=== PATIENT | female | born 1955 | race Caucasian/White ===

== ENCOUNTER 2017-07-31 05:58 | Day surgery (SDC) | payer OTHER ==
[2017-07-29 12:37] VITALS: BMI 33.6
[2017-07-31] MEDS ORDERED: SUCCINYLCHOLINE CHLORIDE 200 MG/10 ML VIAL ONE (07:03)
[2017-07-31] MEDS ORDERED: MIDAZOLAM HCL 2 MG/2 ML SINGLE DOSE VIAL ONE (07:03)
[2017-07-31] MEDS ORDERED: PROPOFOL 20 ML ONE ×2 (07:03→08:08)
[2017-07-31] MEDS ORDERED: BUPIVACAINE HCL/EPINEPHRINE/PF 30 ML VIAL IJ ONE ×2 (07:15→08:09)
[2017-07-31] MEDS ORDERED: ceFAZolin SODIUM 1 GM VIAL ONE (07:55)
[2017-07-31] MEDS ORDERED: ONDANSETRON 4 MG/2 ML VIAL ONE (08:42)
[2017-07-31] MEDS ORDERED: ONDANSETRON 4 MG/2 ML VIAL IVPUSH ONE (08:45)
--- NOTE | 2017-07-31 08:47 | DS ---
Physical Examination Vital Signs: Vital Signs Temperature 98.1 F 07/31/17 06:17 Pulse Rate 78 07/31/17 06:17 Respiratory Rate 19 07/31/17 06:17 Blood Pressure 150/94 07/31/17 06:17 O2 Sat by Pulse Oximetry (%) 98 07/31/17 06:17 Discharge Summary Reason For Visit: MEDIAL MENISCAL TEAR LEFT KNEE Condition: Good - Instructions Diet, Activity, Other Instructions: Post Operative Instructions: Knee Arthroscopy Dr Baljit Hwang 1. Pain following an arthroscopy is variable. Some patients will have more pain than others. You have been provided with a prescription for medication that contains a narcotic. You are not allowed to drive while on this medication. You should NOT take Tylenol (Acetaminophen) when taking the pain medication ( it will result in an overdose). Feel free to take medications such as Ibuprofen or Naprosyn in addition to the pain medicine if you do not have any problems with the NSAID class of medications. 2. You should remove the bandages and shower in 24 hours unless directed otherwise. You are not allowed to bathe or go swimming until the sutures are removed. Put band-aids on the sutures after your shower and do not put any creams or lotions over the incisions. 3. You are allowed to put all your weight on the leg and bend your knee 4. Apply ice to the knee for 15 min every hour or so. You may continue this for as many days as you like. 5. Please call the office to schedule a visit to have your sutures removed. 6. If for any reason you believe you may have an infection or are concerned, please feel free to call me. I can be reached through our office number 24 hours a day. 7. Please call our office with any questions; we will review the surgical findings during your post operative visit. Disposition: HOME - Home Medications Comprehensive Discharge Medication List: Ambulatory Orders Multivitamin [One Daily] 1 each PO DAILY 07/29/17
--- NOTE | 2017-07-31 08:47 | OP ---
Operative Note - Note: Operative Date: 07/31/17 Pre-Operative Diagnosis: left knee MMT/ mild medial OA Operation: LKA, PMM Post-Operative Diagnosis: Same as Pre-op Surgeon: Baljit Hwang Anesthesia: General Operative Report Dictated: Yes
[2017-07-31 11:06] VITALS: BP 142/81; PULSE 64; TEMP 98
--- NOTE | 2017-08-03 15:15 | PATH ---
Surgical Pathology Report Patient Name: KATIE BACH [facility]. Rec. #: [id number] /Age/Gender: 1955 (Age: 61) / F Account: [id number] Location: PENDING SALE TO [facility] Taken: 07/31/2017 Received: 07/31/2017 Reported: 08/03/2017 Physicians: Baljit Hwang M.D. Specimen(s) Received SHAVINGS LEFT KNEE Clinical History Left medial meniscus tear Final Diagnosis LEFT KNEE SHAVINGS: FRAGMENTS OF SYNOVIAL TISSUE WITH FOCAL REACTIVE CHANGE AND LYMPHOPLASMACYTIC INFILTRATE. FIBROCARTILAGINOUS TISSUE WITH DEGENERATIVE CHANGE. Electronically Signed Rosalba Brice M.D. Gross Description Received in formalin, labeled "left knee shavings" is a 1 x 1 x 0.3 cm aggregate of hollins to yellow soft tissue fragments. A national account representative portion is submitted in one cassette. BRIAN/08/01/2017 luis/08/01/2017
== END 2017-07-31 10:50 | disposition home or self-care (01) ==
LOC: FASU 05:58
PROVIDERS: ATTEND Orthopaedic Surgery
PROC: 0SBD4ZZ Excision of Left Knee Joint, Percutaneous Endoscopic Approach (ICD-10-PCS; principal; 2017-07-31 07:30)
DX: S83.242A Other tear of medial meniscus, current injury, left knee, initial encounter (principal); M17.12 Unilateral primary osteoarthritis, left knee; M65.9 Synovitis and tenosynovitis, unspecified
CPT/HCPCS: 88304-TC; 94760

== ENCOUNTER 2017-11-14 12:32 | Emergency (ER) | payer OTHER ==
[2017-11-14 12:48] VITALS: BMI 33.6
[2017-11-14 12:56] LABS: PH,URINE 5.5 (4.5-8); URINE APPEARANCE Clear; URINE BILIRUBIN Negative (NEGATIVE); URINE COLOR Yellow; URINE GLUCOSE (UA) Negative (NEGATIVE); URINE KETONE Negative (NEGATIVE); URINE LEUK ESTERASE Negative (NEGATIVE); URINE NITRITE Negative (NEGATIVE); URINE PROTEIN Negative (NEGATIVE); URINE UROBILINOGEN 0.2 (0.2-1.0)
[2017-11-14] MEDS ORDERED: ACETAMINOPHEN 1000 MG/100 ML VIAL (NON FORMULARY) IVPB ONE (12:57)
[2017-11-14] MEDS ORDERED: SODIUM CHLORIDE 0.9% 500 ML INFUS.BAG IV ONE (12:58)
[2017-11-14] MEDS ORDERED: ACETAMINOPHEN INJECTION 100 ML IVPB ONE (13:06)
--- NOTE | 2017-11-14 13:12 | PDOC ---
History of Present Illness - General Chief Complaint: Pain Stated Complaint: LEFT LOWER ABD PAIN Time Seen by Provider: 11/14/17 12:34 Exam Limitations: No Limitations - History of Present Illness Initial Comments: 11/14/17 13:07 61-year-old female here today complaining of low back pain. Patient states her symptoms started 3-4 days ago denies any trauma no fever no chills. No urinary complaints. Patient states she did miss her last. Her LMP was 6 weeks ago October 06 no fevers no chills no new weakness numbness or tingling. Pain is worse with bending and movements also going from lying to sitting position Past History - Past Medical History Allergies/Adverse Reactions: Allergies Allergy/AdvReac Type Severity Reaction Status Date / Time No Known Allergies Allergy Verified 11/14/17 12:33 Home Medications: Ambulatory Orders Multivitamin [One Daily] 1 each PO DAILY 07/29/17 Anemia: No Asthma: No Cancer: No Cardiac Disorders: No CVA: No COPD: No CHF: No Dementia: No Diabetes: No GI Disorders: No Disorders: No HTN: No Hypercholesterolemia: No Liver Disease: No Seizures: No Thyroid Disease: No - Surgical History Abdominal Surgery: Yes (SEE BELOW) Appendectomy: No Cardiac Surgery: No Cholecystectomy: Yes Lung Surgery: No Neurologic Surgery: No Orthopedic Surgery: No - Suicide/Smoking/Psychosocial Hx Smoking History: Former smoker Have you smoked in the past 12 months: No Number of Cigarettes Smoked Daily: 1 If you are a former smoker, when did you quit?: 2016 Information on smoking cessation initiated: No 'Breaking Loose' booklet given: 05/06/15 Hx Alcohol Use: Yes (OCCASIONAL) Drug/Substance Use Hx: No Substance Use Type: Alcohol Hx Substance Use Treatment: No Review of Systems - Review of Systems Constitutional: No: Diaphoresis, Fever Respiratory: No: Cough, Orthopnea, Shortness of Breath Cardiac (ROS): No: Chest Pain ABD/GI: No: Nausea : No: Burning, Dysuria Musculoskeletal: Yes: Back Pain Neurological: No: Headache, Numbness, Paresthesia, Weakness All Other Systems: Reviewed and Negative *Physical Exam - Vital Signs Last Vital Signs Temp Pulse Resp BP Pulse Ox 98.4 F 102 H 18 176/111 99 11/14/17 12:33 11/14/17 12:33 11/14/17 12:33 11/14/17 12:33 11/14/17 12:33 - Physical Exam Comments: 11/14/17 13:10 Awake alert no acute distress lungs are clear bilaterally heart is regular without any murmurs rubs or gallops abdomen is soft and nontender no palpable pulsatile mass. Back exam demonstrates no midline vertebral body tenderness. There is some paraspinal lumbosacral muscle spasm and tenderness in the sacral region. Lower extremity strength testing is 5 out of 5 on hip flexion, extension , knee flexion, extension, and dorsiflexion, plantarflexion. Sensation is intact to bilateral lower extremities ED Treatment Course - ADDITIONAL ORDERS Additional order review: Laboratory Results 11/14/17 12:45 Urine Color Yellow Urine Appearance Clear Urine pH 5.5 Ur Specific [place] 1.020 Urine Protein Negative Urine Glucose (UA) Negative Urine Ketones Negative Urine Blood Negative Urine Nitrite Negative Urine Bilirubin Negative Urine Urobilinogen 0.2 Ur Leukocyte Esterase Negative Medical Decision Making - Medical Decision Making 11/14/17 13:11 differential diagnosis includes low back msk strain UTI is less likely, will check ua , ucg Plan start with Tylenol for pain control if Likely discharge home with cations
--- NOTE | 2017-11-14 13:12 | PDOC ---
History of Present Illness - General Chief Complaint: Pain Stated Complaint: LEFT LOWER ABD PAIN Time Seen by Provider: 11/14/17 12:34 History Source: Patient, Significant Other Exam Limitations: No Limitations - History of Present Illness Initial Comments: 11/14/17 12:59 This is a 61 YOF with h/o cholecystectomy, knee meniscus repair, and former smoking who p/w 1.5 weeks of vague dull mild left-sided chest discomfort which comes and goes multiple times a day and radiates up to her left neck/jaw, as well as an acute onset of LLQ abdominal pain which awakened her from sleep randomly at 10/10 without radiation, but has since subsided to 5/10 remaining in the LLQ but now radiating to the left periumbilical region. She notes an episode of loose non-bloody non-black non-white stool this morning, and nausea which started about 1 hour [employer] to the ED, but denies any recent f/c, vomiting, constipation, significant headache, lightheadedness, dizziness, vision changes, n/t/w, back pain, or other symptoms. She has not taken any medications for her symptoms. Past History - Past Medical History Allergies/Adverse Reactions: Allergies Allergy/AdvReac Type Severity Reaction Status Date / Time No Known Allergies Allergy Verified 11/14/17 12:33 Home Medications: Ambulatory Orders Multivitamin [One Daily] 1 each PO DAILY 07/29/17 Ciprofloxacin HCl [Cipro] 500 mg PO BID #14 tablet 11/14/17 metroNIDAZOLE [Flagyl -] 500 mg PO TID #21 tablet 11/14/17 Anemia: No Asthma: No Cancer: No Cardiac Disorders: No CVA: No COPD: No CHF: No Dementia: No Diabetes: No GI Disorders: No Disorders: No HTN: No Hypercholesterolemia: No Liver Disease: No Seizures: No Thyroid Disease: No - Surgical History Abdominal Surgery: Yes (SEE BELOW) Appendectomy: No Cardiac Surgery: No Cholecystectomy: Yes Lung Surgery: No Neurologic Surgery: No Orthopedic Surgery: No - Suicide/Smoking/Psychosocial Hx Smoking History: Former smoker Have you smoked in the past 12 months: No Number of Cigarettes Smoked Daily: 1 If you are a former smoker, when did you quit?: 2016 Information on smoking cessation initiated: No 'Breaking Loose' booklet given: 05/06/15 Hx Alcohol Use: Yes (OCCASIONAL) Drug/Substance Use Hx: No Substance Use Type: Alcohol Hx Substance Use Treatment: No Review of Systems - Review of Systems Able to Perform ROS?: Yes Constitutional: No: Chills, Fever, Unexplained wgt Loss HEENTM: No: Nose Congestion, Throat Pain Respiratory: No: Cough, Shortness of Breath, Productive cough Cardiac (ROS): Yes: Chest Pain. No: Palpitations ABD/GI: Yes: Diarrhea (loose), Nausea, Other (LLQ abdominal pain). No: Constipated, Vomiting : No: Burning, Dysuria, Discharge, Frequency, Flank Pain, Hematuria Musculoskeletal: Yes: Neck Pain (left lateral neck (patient points)). No: Back Pain Integumentary: No: Bruising, Rash Neurological: No: Headache, Numbness, Tingling, Weakness, Dizziness Endocrine: No: Unexplained Weight Gain, Unexplained Weight Loss *Physical Exam - Vital Signs Last Vital Signs Temp Pulse Resp BP Pulse Ox 98.4 F 102 H 18 176/111 99 11/14/17 12:33 11/14/17 12:11/14/17 12:33 11/14/17 12:33 11/14/17 12:11/14/17 13:43 GENERAL: nontoxic and well-appearing, nourished, A/Ox4, no acute distress but mildly uncomfortable, speaking in full sentences, answers questions appropriately, accompanied by HEENT: PERRLA, EOMI, moist mucous membranes, no posterior pharyngeal erythema, no tonsillar swelling or exudates, no cervical lymphadenopathy NECK: No midline ttp, no spinal stepoff or deformity, full ROM, supple CARDIOVASCULAR: Regular rate and rhythm, normal S1S2, MGR, radial and DP pulses 2+ and symmetric, capillary refill <2 seconds, extremities warm and well- perfused Chest wall: Normal appearance, no rash, no bruising, no costal stepoff or deformity, nontender to compression LUNGS/RESPIRATORY: No respiratory distress, normal and symmetric chest movements during respirations, lungs CTA bilaterally, equal breath sounds, no cyanosis, no nail clubbing GI/ABDOMEN: Normal symmetric appearance, normoactive bowel sounds, soft, moderate LLQ ttp, palpation of the umbilical/RLQ/LUQ reproduces the LLQ pain, no midline pulsatile masses, no palpated organomegaly : No CVA tenderness BACK: No midline ttp or stepoff or deformity of thoracic or lumbar spine EXTREMITIES: distal pulses 2+, warm and well-perfused, no LE edema SKIN: Warm and dry, no pallor, no jaundice, no bruising, no rash, no skin breakdown, no cuts, no lesions NEUROLOGICAL: GCS 15, CN II-XII grossly intact, ambulating with normal gait, moving all extremities, 5/5 strength proximally and distally, no facial droop, no decreased sensation Procedures - Bedside Ultrasound Bedside Ultrasound: Aorta Other: and renal Remarks: Study: renal, bladder, aorta Indication: LLQ pain, left chest/shoulder pain Findings: normal kidney size without hydronephrosis, normal decompressed bladder , no aortic aneurysm or dissection. Conclusion: normal renal, bladder, and aorta POCUS studies Heart Score/ECG Review - History History: Slightly suspicious - Electrocardiogram EKG: Normal - Age Age: 45-65 - Risk Factors Risk Factors Heart Score: Yes Hx Hypertension, Yes Smoking History, Yes Hx Obesity Based on the list above the patient has:: >/=3 risk factors or Hx atherosclerotic disease - Troponin Troponin: </= normal limit - Score Heart Score - Total: 3 #1 11/14/17 13:07 NSR rate of 88 with normal axis and intervals, no ischemic ST-T changes ED Treatment Course - LABORATORY CBC & Chemistry Diagram: 11/14/17 13:15 11/14/17 13:15 Medical Decision Making - Medical Decision Making 11/14/17 13:48 61 YOF p/w abrupt onset 10/10 LLQ pain awakened her from sleep this morning, also loose stool and nausea. Also with 1.5 wks vague dull mild episodic chest pain. Initial Vital Signs Temp Pulse Resp BP Pulse Ox 98.4 F 102 H 18 176/111 99 11/14/17 12:33 11/14/17 12:33 11/14/17 12:33 11/14/17 12:33 11/14/17 12:33 Exam: As noted in Physical Exam section. DDX IBNLT: UTI/pyelonephritis, diverticulitis wwo abscess or perforation, colitis, ovarian torsion, PID, TOA, ovarian cyst, malignancy, hernia, AAA/AD, pancreatitis, appendicitis, gastritis, PUD, ACS, renal colic, SBO, bowel ischemia, bowel perforation, musculoskeletal, constipation, etc. Active Orders 24 hr Category Date Time Status ABDOMEN & PELVIS CT WITH CONTR [CT] Stat CT Scan 11/14/17 13:46 Ordered EKG [ELECTROCARDIOGRAM] [CARD] Stat Cardiology 11/14/17 12:58 Ordered Cardiac Monitoring NOW Care 11/14/17 12:58 Ordered ekg monitor tech, off for tests As directed Care 11/14/17 12:58 Ordered IV Insert NOW Care 11/14/17 12:58 Ordered CARDIAC PROFILE (ONLY [facility]) Stat Lab 11/14/17 12:58 Ordered CARDIAC PROFILE (ONLY [facility]) Stat Lab 11/14/17 13:15 Ordered CARDIAC PROFILE (ONLY [facility]) Stat Lab 11/14/17 13:15 Ordered CBC WITH DIFFERENTIAL Stat Lab 11/14/17 12:58 Ordered COMP METABOLIC PANEL Stat Lab 11/14/17 12:58 Ordered LACTIC ACID Stat Lab 11/14/17 12:58 Ordered PT/INR (PROTHROMBIN TIME) Stat Lab 11/14/17 12:58 Ordered URINE CULTURE Stat Micro 11/14/17 12:58 Ordered Saline Lock, Insert ONCE Phy Order 11/14/17 13:00 Ordered CHEST X-RAY PORTABLE* [RAD] Stat Radiology 11/14/17 12:58 Ordered Also IVF and Ofirmev and Zofran ordered. POCUS: As noted in Procedures Section CXR: nothing acute. CT/ABDOMEN PELVIS CT WITH CONTR HISTORY PROVIDED: Left lower quadrant pain. Sequential axial images were obtained from the domes of the diaphragms through the symphysis pubis following the administration of both oral and intravenous contrast material. The lung bases are clear. The liver, spleen, pancreas, adrenal glands and kidneys demonstrate no significant abnormalities. The gallbladder has been removed. There is no evidence of intra-abdominal or retroperitoneal lymphadenopathy or fluid collections. There is no evidence of pneumoperitoneum, bowel obstruction or intra-abdominal abscess. There is no CT evidence of acute appendicitis. There is thickening and irregularity of the proximal sigmoid colon within the left lower quadrant. Inflammatory changes are noted within the adjacent mesenteric fat. There is a diverticulum seen in this location and this appearance is consistent with acute diverticulitis. No abscess is associated with this process. Examination of the pelvis demonstrates no evidence of pelvic masses, fluid collections or lymphadenopathy. There is a 3.7 cm left ovarian cyst. There is no evidence of acute bony pathology. IMPRESSION: Findings consistent with acute sigmoid diverticulitis without abscess formation. Clinical correlation and follow-up recommended. Please see above discussion. Laboratory Tests 11/14/17 11/14/17 11/14/17 12:45 13:15 13:15 WBC 7.2 RBC 5.35 H Hgb 15.2 Hct 47.2 H MCV 88.3 MCH 28.5 MCHC 32.3 RDW 13.8 Plt Count 276 MPV 7.7 Absolute Neuts (auto) 4.8 Neutrophils % 67.8 Lymphocytes % 22.5 Monocytes % 6.4 Eosinophils % 2.4 Basophils % 0.9 PT with INR 10.4 INR 0.93 L Sodium Potassium Chloride Carbon Dioxide Anion Gap BUN Creatinine Creat Clearance w eGFR Random Glucose Lactic Acid Calcium Total Bilirubin AST ALT Alkaline Phosphatase Creatine Kinase Troponin I Total Protein Albumin Urine Color Yellow Urine Appearance Clear Urine pH 5.5 Ur Specific [place] 1.020 Urine Protein Negative Urine Glucose (UA) Negative Urine Ketones Negative Urine Blood Negative Urine Nitrite Negative Urine Bilirubin Negative Urine Urobilinogen 0.2 Ur Leukocyte Esterase Negative 11/14/17 11/14/17 11/14/17 13:15 13:15 13:15 WBC RBC Hgb Hct MCV MCH MCHC RDW Plt Count MPV Absolute Neuts (auto) Neutrophils % Lymphocytes % Monocytes % Eosinophils % Basophils % PT with INR INR Sodium 138 Potassium 4.1 Chloride 105 Carbon Dioxide 26 Anion Gap 7 L BUN 14 Creatinine 0.9 Creat Clearance w eGFR > 60 Random Glucose 100 Lactic Acid 1.1 Calcium 9.3 Total Bilirubin 0.7 AST 19 D ALT 24 D Alkaline Phosphatase 91 Creatine Kinase 68 Troponin I < 0.03 Total Protein 6.9 Albumin 4.2 Urine Color Urine Appearance Urine pH Ur Specific [place] Urine Protein Urine Glucose (UA) Urine Ketones Urine Blood Urine Nitrite Urine Bilirubin Urine Urobilinogen Ur Leukocyte Esterase 11/14/17 16:57 Reassessment: Patient states pain much improved. She prefers to manage this at home and believes she will be able to control the pain with Tylenol and Motrin. She is advised on the E-Rx for antibiotics and understands she needs to take both Rx simultaneously and finish entire course. Repeat abdominal exam is benign. Vital Signs Temperature 98.3 F 11/14/17 17:13 Pulse Rate 78 11/14/17 17:13 Respiratory Rate 18 11/14/17 17:13 Blood Pressure 168/98 11/14/17 17:13 O2 Sat by Pulse Oximetry (%) 100 11/14/17 17:13 The patient has acute sigmoid diverticulitis. This patient has gotten significant relief of symptoms while in the ED. On last reassessment, vitals are wnl, pain is reasonably controlled, and exam is benign. Workup is not concerning for emergency-level pathology at this time. E-Rx is sent to the patient's pharmacy for cipro/flagyl. This patient is appropriate for discharge with close outpatient follow up. She comfortable with this plan and will follow up with her primary care provider within 3 days. Specific return precautions are discussed and they will come back to the ER if necessary. *DC/Admit/Observation/Transfer Diagnosis at time of Disposition: Diverticulitis - Discharge Dispostion Disposition: HOME Condition at time of disposition: Stable Decision to Admit order: No - Prescriptions Prescriptions: Ciprofloxacin HCl [Cipro] 500 mg PO BID #14 tablet metroNIDAZOLE [Flagyl -] 500 mg PO TID #21 tablet - Referrals Referrals: Rasta Soria MD [Primary Care Provider] - - Patient Instructions Printed Discharge Instructions: DI for Diverticulitis Additional Instructions: YOU WERE SEEN IN THE ER FOR ABDOMINAL PAIN. WE DID AN EXAM, LABS, AN ULTRASOUND , AN ELECTROCARDIOGRAM, AND A CT SCAN OF THE ABDOMEN AND PELVIS. WE SAW EVIDENCE OF DIVERTICULITIS ON THE CT SCAN AND YOU NEED ANTIBIOTICS FOR THIS. WE ARE SENDING TWO ANTIBIOTIC PRESCRIPTIONS TO YOUR PHARMACY, AND YOU WILL NEED TO TAKE BOTH OF THEM AT THE SAME TIME PRESCRIBED. YOU SHOULD FINISH THE COURSES OF ANTIBIOTICS WHETHER OR NOT YOU FEEL BETTER. AFTER OUR ASSESSMENT, WE DO NOT BELIEVE YOU ARE HAVING A MEDICAL EMERGENCY AT THIS TIME, AND WE BELIEVE YOU ARE SAFE TO GO HOME. PLEASE FOLLOW UP WITH YOUR REGULAR PCP WITHIN 3 DAYS. CALL THEIR CLINIC, TELL THEM YOU WERE SEEN IN THE ER, AND TELL THEM YOU NEED A FOLLOW -UP. IF YOU HAVE ANY NEW OR WORSENING SYMPTOMS, ESPECIALLY FEVER, VOMITING ( ESPECIALLY WITH BLOOD), RECTAL BLEEDING, SEVERE ABDOMINAL PAIN, CHEST PAIN, PALPITATIONS, OR SHORTNESS OF BREATH, PLEASE COME BACK TO THE ER AT ANY TIME ( 24 HOURS A DAY). IF YOU ARE HAVING SEVERE OR LIFE THREATENING SYMPTOMS, OR SYMPTOMS THAT MAKE IT UNSAFE TO DRIVE OR HAVE SOMEONE DRIVE YOU, PLEASE CALL 911. PLEASE GO ON A LIQUID DIET FOR 24 HOURS, THEN SLOWLY ADVANCE BACK TO SOLID FOODS. THIS WILL GIVE YOUR GI SYSTEM THE REST THAT IT NEEDS. FOLLOW THIS PAIN MEDICATION REGIMEN: At hour 0, take Tylenol 650 mg (two regular strength pills) At hour 3, take ibuprofen 600 mg (three regular strength pills) At hour 6, take Tylenol 650 mg (two regular strength pills) At hour 9, take ibuprofen 600 mg (three regular strength pills) Etc. - Post Discharge Activity
--- NOTE | 2017-11-14 13:16 | PDOC ---
Attending Attestation - Resident Resident Name: ThadAshlee - ED Attending Attestation I have performed the following: I have examined & evaluated the patient, The case was reviewed & discussed with the resident, I agree w/resident's findings & plan, Exceptions are as noted - HPI HPI: 11/14/17 13:47 61-year-old female no past medical history here today complaining of lower abdominal pain. Patient states her symptoms started at 8 AM today. She has had intermittent chest pain for one week radiating to her neck denies any shortness of breath today she did develop some nausea associated with the abdominal pain. The pain is more pronounced in the left lower quadrant does not radiate she denies any associated numbness or tingling no history of prior kidney stones no history of similar abdominal pain. Past surgical history is noted for prior cholecystectomy and many years ago denies any urinary complaints or hematuria no fevers no chills today had one single loose stool does have nausea but no vomiting - Physicial Exam PE: 11/14/17 13:49 Awake alert no acute distress lungs are clear bilaterally heart is regular without any murmurs rubs or gallops abdomen is soft there is bilateral lower quadrant tenderness with referred pain to the left lower quadrant when palpating the right side. No rebound no guarding no CVA tenderness no pulsatile mass extremities are warm and well-perfused there is no peripheral edema pulses are 2+ all 4 extremities and are symmetric skin is warm and dry neurologically alert oriented 3 - Medical Decision Making 11/14/17 13:50 Differential diagnosis includes renal colic, UTI, pyelonephritis, diverticulitis , aortic aneurysm was. atypical ACS was also considered as the patient has had intermittent chest pain. Plan CBC CMP chest x-ray EKG we'll perform a focused ED bedside ultrasound renal and aorta and consider CT following Focus ED ultrasound, renal Indication abdominal pain evaluate for hydronephrosis Bilateral renal ultrasound scanned into planes the bladder was scanned no noted bladder distention. No obvious hydronephrosis noted impression normal renal ultrasound Focus ED ultrasound of the aorta Aorta was scanned in the proximal celiac trunk down to the bifurcation at the iliacs. There was no noted abdominal aneurysm all measurements of the aorta were less than 2.5 cm longitudinal views showed no secular aneurysm impression normal aorta and no aneurysm We'll obtain CT abdomen and pelvis with contrast to evaluate for possible diverticulitis Heart Score/ECG Review #1 General ECG Interpretation: Sinus Rhythm, Normal Rate, Normal Intervals, No acute ischemic changes
[2017-11-14 13:28] LABS: BASO % 0.9 % (0-2.0); EOS % 2.4 % (0-4.5); HEMATOCRIT 47.2 % (32.4-45.2); HEMOGLOBIN 15.2 GM/dl (10.7-15.3); LYMPH % 22.5 % (8-40); MCH 28.5 pg (25.7-33.7); MCHC 32.3 g/dl (32.0-36.0); MEAN CELL VOLUME 88.3 fl (80-96); MEAN PLT VOLUME 7.7 fl (7.5-11.1); MONO % 6.4 % (3.8-10.2); NEUT % 67.8 % (42.8-82.8); PLATELET COUNT 276 K/MM3 (134-434); RBC 5.35 M/mm3 (3.60-5.2); RDW 13.8 % (11.6-15.6); WHITE BLOOD COUNT 7.2 K/mm3 (4.0-10.8)
[2017-11-14] MEDS ORDERED: ONDANSETRON 4 MG/2 ML VIAL IVPUSH ONE (13:47)
[2017-11-14 13:51] LABS: ALBUMIN 4.2 g/dl (3.5-5.0); ALK PHOS 91 U/L (32-92); ANION GAP 7 MMOL/L (8-16); BILIRUBIN,TOTAL 0.7 mg/dl (0.2-1.0); BLOOD UREA NITROGEN 14 mg/dl (7-18); CALCIUM 9.3 mg/dl (8.4-10.2); CHLORIDE 105 mmol/L (98-107); CO2 26 mmol/L (22-28); CREATININE 0.9 mg/dl (0.6-1.3); GLUCOSE,RANDOM 100 mg/dl (74-106); POTASSIUM 4.1 mmol/L (3.5-5.1); SGOT/AST 19 U/L (10-42); SGPT/ALT 24 U/L (10-40); SODIUM 138 mmol/L (136-145); TOT PROT 6.9 g/dl (6.4-8.3)
[2017-11-14] MEDS ORDERED: ONDANSETRON 4 MG/2 ML VIAL ONE (13:51)
[2017-11-14 13:55] LABS: INR 0.93 (0.82-1.09); PROTHROMBIN TIME (PATIENT) 10.4 SEC (10.2-13.0)
[2017-11-14] MEDS ORDERED: CIPROFLOXACIN 500 MG TABLET (RESTRICTED TO ID) PO ONE (17:00)
[2017-11-14] MEDS ORDERED: metroNIDAZOLE 250 MG TABLET PO ONE (17:00)
[2017-11-14] MEDS ORDERED: metroNIDAZOLE 250 MG TABLET ONE (17:01)
[2017-11-14] MEDS ORDERED: CIPROFLOXACIN 250 MG TABLET (RESTRICTED TO ID) PO ONE (17:02)
[2017-11-14 17:14] VITALS: BP 168/98; PULSE 78; TEMP 98.3
--- NOTE | 2017-11-15 17:08 | EKG ---
Test Reason : Blood Pressure : / mmHG Vent. Rate : 088 BPM Atrial Rate : 088 BPM P-R Int : 132 ms QRS Dur : 082 ms QT Int : 368 ms P-R-T Axes : 026 008 015 degrees QTc Int : 445 ms NORMAL SINUS RHYTHM NORMAL ECG NO PREVIOUS ECGS AVAILABLE Confirmed by MD Elías, Vitaly ([id number]) on 11/15/2017 5:08:08 PM Referred By: ALFONZO SILVA Confirmed By:Vitaly Mckinley MD
== END 2017-11-14 17:19 | disposition home or self-care (01) ==
LOC: SUPCPDRO 12:32 → FER 12:32
PROC: 3E0337Z Introduction of Electrolytic and Water Balance Substance into Peripheral Vein, Percutaneous Approach (ICD-10-PCS; principal; 2017-11-14)
PROC: 3E033GC Introduction of Other Therapeutic Substance into Peripheral Vein, Percutaneous Approach (ICD-10-PCS; 2017-11-14)
PROC: 3E033NZ Introduction of Analgesics, Hypnotics, Sedatives into Peripheral Vein, Percutaneous Approach (ICD-10-PCS; 2017-11-14)
DX: K57.92 Diverticulitis of intestine, part unspecified, without perforation or abscess without bleeding (principal); Z87.891 Personal history of nicotine dependence
CPT/HCPCS: 36415; 71045-TC-FY; 74177-TC; 80053; 81003; 82550; 83605; 84484; 85025; 85610; 87086; 93005; 99284-25; J0131

== ENCOUNTER 2019-01-19 07:39 | Day surgery (SDC) | payer OTHER, BC ==
[2019-01-10 14:13] VITALS: BMI 34.3
[2019-01-19] MEDS: TROPICAMIDE 1% OPHTH SOLN 15 ML BOTTLE ONE ×2 (08:05→08:10)
[2019-01-19] MEDS: PHENYLEPHRINE 2.5% OPHTH SOLN 15 ML BOTTLE ONE ×3 (08:05→08:15)
[2019-01-19] MEDS: CIPROFLOXACIN 0.3% EYE DROPS 5 ML BOTTLE ONE ×3 (08:05→08:15)
[2019-01-19] MEDS: CYCLOPENTOLATE 2% OPHTH SOLN 2 ML BOTTLE ONE ×3 (08:05→08:15)
[2019-01-19] MEDS ORDERED: TROPICAMIDE 1% OPHTH SOLN 15 ML BOTTLE OD ONE (08:15)
[2019-01-19] MEDS ORDERED: MIDAZOLAM HCL 2 MG/2 ML SINGLE DOSE VIAL ONE ×2 (08:48→09:01)
[2019-01-19] MEDS ORDERED: NEO/POLYMYX B SULF/DEXAMETH OPHTHALMIC 5ML BOTTLE ONE (09:14)
[2019-01-19] MEDS ORDERED: CARBACHOL 0.01% INTRA-OCULAR 1.5 ML VIAL ONE (09:14)
[2019-01-19] MEDS ORDERED: LIDOCAINE 1% P/F 10 MG/ML VIAL ONE (09:14)
[2019-01-19] MEDS ORDERED: BSS (NA/CA/MG/K) BALANCED SALT SOLUTION OPHTH SOLN 15 ML BOTTLE ONE (09:14)
[2019-01-19 09:23] VITALS: TEMP 98.2
[2019-01-19 09:45] VITALS: BP 130/80; PULSE 88
--- NOTE | 2019-01-19 10:40 | OP ---
DATE OF OPERATION: 01/19/2019 OPERATIVE PROCEDURE: Lens Phacoemulsification with Posterior Chamber Intraocular Lens Placement, Right Eye PREOPERATIVE DIAGNOSIS: Visually Significant Cataract of Right Eye. POSTOPERATIVE DIAGNOSIS: Visually Significant Cataract of Right Eye. SURGEON: Barrett Goodman MD ANESTHESIA: MAC ANESTHESIOLOGIST: PROCEDURE: The patient was brought to the operating room and placed under monitored anesthesia care by Anesthesia. A drop of Tetracaine was then placed over the right eye. The patient was then prepped and draped in the usual sterile manner. A speculum was then placed over the right eye. The eye was then well irrigated with copious amounts of BSS (balanced salt solution). The operating microscope was then moved into position. A paracentesis was performed using a 15 degree blade. At this point 0.5 mL of 1% preservative free-lidocaine was injected into the anterior chamber. Amvisc plus was then injected into the anterior chamber. A clear corneal incision was then formed using a 2.2 mm keratome. A capsulorrhexis was then performed in a continuous circular fashion beginning with a cystotome completed with an Utratas forceps. Hydrodissection was then performed using BSS on a cannula. The phaco probe was then introduced through the corneal wound and the cataract was removed using the phaco chop technique. Approximately 3 seconds of absolute phaco time was used. The remaining cortex was then removed using irrigation and aspiration with an I/A probe. The capsule was then filled with regular Amvisc and the capsule was noted to be intact. A previously selected foldable posterior chamber intraocular lens was then injected into the capsule through the corneal wound using a lens injector. It was then dialed into position using a Sinskey hook. The Amvisc was then removed using irrigation and aspiration. Miostat was then injected through the paracentesis to constrict the pupil. The paracentesis and corneal wound were then hydrated and noted to be watertight. A drop of Maxitrol was then placed over the eye. The speculum was removed and clear shield was taped over the eye. The patient tolerated the procedure well and there were no surgical complications. The patient was asked to follow up in my office the next day. BARRETT GOODMAN M.D. ADRIAN/[id number]
== END 2019-01-19 09:55 | disposition home or self-care (01) ==
LOC: FASU 07:39
PROVIDERS: ATTEND Ophthalmology
PROC: 08RJ3JZ Replacement of Right Lens with Synthetic Substitute, Percutaneous Approach (ICD-10-PCS; principal; 2019-01-19 09:00)
DX: H26.8 Other specified cataract (principal)

== ENCOUNTER 2019-02-09 07:39 | Day surgery (SDC) | payer OTHER, BC ==
[2019-02-07 15:49] VITALS: BMI 34.3
[2019-02-09] MEDS: PHENYLEPHRINE 2.5% OPHTH SOLN 15 ML BOTTLE ONE ×3 (08:10→08:20)
[2019-02-09] MEDS: CYCLOPENTOLATE 2% OPHTH SOLN 2 ML BOTTLE ONE ×3 (08:10→08:20)
[2019-02-09] MEDS: TROPICAMIDE 1% OPHTH SOLN 15 ML BOTTLE ONE ×3 (08:10→08:20)
[2019-02-09] MEDS: CIPROFLOXACIN 0.3% EYE DROPS 5 ML BOTTLE ONE ×3 (08:10→08:20)
[2019-02-09] MEDS ORDERED: BSS (NA/CA/MG/K) BALANCED SALT SOLUTION OPHTH SOLN 15 ML BOTTLE ONE (09:22)
[2019-02-09] MEDS ORDERED: NEO/POLYMYX B SULF/DEXAMETH OPHTHALMIC 5ML BOTTLE ONE (09:22)
[2019-02-09] MEDS ORDERED: CARBACHOL 0.01% INTRA-OCULAR 1.5 ML VIAL ONE (09:22)
[2019-02-09] MEDS ORDERED: LIDOCAINE 1% P/F 10 MG/ML VIAL ONE (09:22)
[2019-02-09] MEDS ORDERED: TETRACAINE 0.5% OPHTH SOLN 2 ML BOTTLE ONE (09:22)
[2019-02-09] MEDS ORDERED: MIDAZOLAM HCL 2 MG/2 ML SINGLE DOSE VIAL ONE ×2 (09:37→09:45)
[2019-02-09 10:16] VITALS: TEMP 98.4
[2019-02-09 10:40] VITALS: BP 136/83; PULSE 80
--- NOTE | 2019-02-09 11:31 | OP ---
DATE OF OPERATION: 02/09/2019 OPERATIVE PROCEDURE: Lens phacoemulsification with posterior chamber intraocular lens placement, left eye. PREOPERATIVE DIAGNOSIS: Visually significant cataract of left eye. POSTOPERATIVE DIAGNOSIS: Visually significant cataract of left eye. SURGEON: Barrett Goodman MD ANESTHESIA: MAC. PROCEDURE: The patient was brought to the operating room and placed under monitored anesthesia care by Anesthesia. A drop of tetracaine was then placed over the left eye. The patient was then prepped and draped in the usual sterile manner. A speculum was then placed over the left eye. The eye was then well irrigated with copious amounts of BSS (balanced salt solution). The operating microscope was then moved into position. A paracentesis was performed using a 15-degree blade. At this point 0.5 mL of 1% preservative-free lidocaine was injected into the anterior chamber. Amvisc Plus was then injected into the anterior chamber. A clear corneal incision was then formed using a 2.2-mm keratome. A capsulorrhexis was then performed in a continuous circular fashion beginning with a cystotome, completed with an Utratas forceps. Hydrodissection was then performed using BSS on a cannula. The phaco probe was then introduced through the corneal wound and the cataract was removed using the phaco chop technique. Approximately 3 seconds of absolute phaco time was used. The remaining cortex was then removed using irrigation and aspiration with an I/A probe. The capsule was then filled with regular Amvisc and the capsule was noted to be intact. A previously selected foldable posterior chamber intraocular lens was then injected into the capsule through the corneal wound using a lens injector. It was then dialed into position using a Sinskey hook. The Amvisc was then removed using irrigation and aspiration. Miostat was then injected through the paracentesis to constrict the pupil. The paracentesis and corneal wound were then hydrated and noted to be watertight. A drop of Maxitrol was then placed over the eye. The speculum was removed and clear shield was taped over the eye. The patient tolerated the procedure well and there were no surgical complications. The patient was asked to follow up in my office the next day. BARRETT GOODMAN M.D. [id number]
== END 2019-02-09 10:45 | disposition home or self-care (01) ==
LOC: FASU 07:39
PROVIDERS: ATTEND Ophthalmology
PROC: 08RK3JZ Replacement of Left Lens with Synthetic Substitute, Percutaneous Approach (ICD-10-PCS; principal; 2019-02-09 09:45)
DX: H26.8 Other specified cataract (principal)